=== PATIENT | female | born 1960 | race Caucasian/White ===

== ENCOUNTER 2021-10-21 12:36 | Outpatient (CLI) | payer OTHER | END 2021-10-21 12:37 | disposition home or self-care (01) | LOC: BICRAD 12:36 | PROVIDERS: ATTEND Family Medicine | DX: M54.2 Cervicalgia (principal); M54.50 Low back pain, unspecified; M47.812 Spondylosis without myelopathy or radiculopathy, cervical region; M47.816 Spondylosis without myelopathy or radiculopathy, lumbar region | CPT/HCPCS: 72040; 72100 ==